=== PATIENT | male | born 1950 | race Caucasian/White ===

== ENCOUNTER 2025-03-20 13:09 | Observation (INO) | payer MEDICARE, SELFPAY ==
[2025-03-20] VITALS (39 sets, daily range): BP systolic 95–150; BP diastolic 33–69; PULSE 74–123; RESP 11–29; TEMP 36.4–37.2; O2SAT 90–98
--- NOTE | 2025-03-20 12:45 | RT.EKG_ITS ---
APPROVED REPORT Exam: Resting ECG Reason for Exam: tachycardia, sepsis alert Patient Location: E HR:121 bpm ECG Measurements Heart Rate 121 AXIS HI 174 P 28 QRSd 99 QRS -8 QT 297 T 27 QTc 417 Conclusion Sinus tachycardia...rate> 99 Multiform ventricular premature complexes...short R-R, variable morphology
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
--- NOTE | 2025-03-20 13:26 | DI.CT_ITS ---
Exam(s) CT ABDOMEN PELVIS WO EXAM: CT ABDOMEN PELVIS WO CLINICAL HISTORY: septic; infection search. TECHNIQUE: Imaging Protocol: Axial computed tomography images with coronal and sagittal reformatted images were created and reviewed. Oral: no COMPARISON: MR MRI ABDOMEN WO CONTRAST from 05/04/2017 FINDINGS: Lung Bases: Right lower lobe pneumonia. The visualized portions of the right middle lobe and left lower lobe are free of infiltrate. Liver: Mildly enlarged. [id number] hepatic steatosis. No suspicious mass. Gallbladder and biliary tract: Cholecystectomy. No biliary dilation. Pancreas: Normal density. No abnormal calcifications or inflammatory process. Spleen: Enlarged at 15 cm in length. Kidneys: Normal size, contour and axis. No radiodense stones. No obstructive uropathy. No suspicious masses seen. Adrenal glands: No masses seen. Lymph nodes: Within normal limits. Vasculature: Abdominal aorta non-dilated. Soft tissues: Small fat containing umbilical hernia. Small amount of fat in both inguinal canals. Bladder: No wall thickening. No mass or calculi. Bowel: No obstruction or bowel wall thickening. High-density material at the base of the cecum could be related to prior appendectomy. Sigmoid diverticulosis. No evidence of diverticulitis. The colon contains a small amount of fecal material. Peritoneal cavity: No ascites. No focal collection. No mesenteric inflammatory response. Reproductive organs: Markedly enlarged prostate, impressing on the base of the bladder. Bones: Advanced degenerative changes in the lumbar spine. IMPRESSION: Right lower lobe pneumonia. No acute abnormality in the abdomen or pelvis. RADIATION DOSE DELIVERED: Total DLP DATA REPOSITORY: All CT scans at this facility are submitted to the National Radiology Data Registry (NRDR) Dose Index Registry (DIR) with the [employer] (ACR). RADIATION OPTIMIZATION: All CT scans at this facility use at least one of these dose optimization techniques: automated exposure control; mA and/or kV adjustment per patient size (includes targeted exams where dose is matched to clinical indication); or iterative reconstruction.
[2025-03-20] MEDS: Ketorolac 15 MG/ML VIAL IVP (13:41)
[2025-03-20] MEDS: Normal Saline 1,000 ML 1000 ML IV (13:43)
[2025-03-20] MEDS: ACETAMINOPHEN 1,000 MG/100 ML BAG 400 MG IVPB (13:49)
[2025-03-20] MEDS: CEFEPIME 2 GM in Normal Saline 100 ML IVPB (14:00)
[2025-03-20 14:03] LABS: Abs Immature Grans 0.06 10^3/uL (0.0-0.06); BE (Venous) 2 mmol/L (-2-3); HCO3 (Venous) 27 mmol/L (23-28); HCT 36.0 % (40.0-50.0); HGB 11.2 g/dL (13.5-17.5); Immature Grans % 0.7 %; MCH 27.2 pg (27.0-33.0); MCHC 31.1 % (32.0-36.0); MCV 87 fL (80-95); MPV 9.8 fL (8.0-11.0); O2 Sat (Venous) 50 %; Platelet Count 185 10^3/uL (130-400); RBC 4.12 10^6/uL (4.36-5.78); RDW 14.8 % (11.8-14.1); RDW-SD 47.8 fL; TCO2 (Venous) 25 mmol/L (24-29); WBC 8.49 10^3/uL (4.4-10.8); pCO2 (Venous) 48 mmHg (41-51); pO2 (Venous) 29 mmHg
[2025-03-20] MEDS: Omnipaque 350 MG/ML 500 ML BTL-Imaging package IJ (14:20)
[2025-03-20] MEDS: Normal Saline - Diluent 50 ML VIAL IJ (14:20)
[2025-03-20 14:29] LABS: ALT 18 U/L (16-63); AST 18 U/L (15-37); Albumin 3.2 g/dL (3.4-5.0); Alkaline Phosphatase 72 U/L (46-116); Anion Gap 5.2 mmol/L (3-11); BUN 38 mg/dL (7-18); Bilirubin, Total 1.3 mg/dL (0.2-1.0); CO2 30.8 mmol/L (21.0-32.0); Calcium 9.1 mg/dL (8.5-10.1); Chloride 100 mmol/L (98-107); Estimated GFR 30.28 (mL/min/1.73m2); Glucose 214 mg/dL (74-106); Lipase 17 U/L (<78); Magnesium 1.7 mg/dL (1.8-2.4); Potassium 5.5 mmol/L (3.5-5.1); Sodium 136 mmol/L (136-145); TSH (W/Ref FT4) 0.73 uIU/mL (0.36-3.74); Total Protein 8.0 g/dL (6.4-8.2); Troponin I 14 ng/L (<or=76)
[2025-03-20 14:30] LABS: C-Reactive Protein > 25.00 mg/dL (<or=0.5)
--- NOTE | 2025-03-20 14:54 | DI.RAD_ITS ---
Exam(s) XR CHEST 2V PA LATERAL EXAM: XR CHEST 2V PA LATERAL CLINICAL HISTORY: cough TECHNIQUE: 2D digital imaging was performed. Two views. COMPARISON: No exams were available for comparison FINDINGS: Exam is limited due to under penetration, patient body habitus and poor pulmonary inflation. HEART: Normal size. Aorta: Not dilated. PULMONARY VASCULATURE: Normal. MEDIASTINUM: Unremarkable. LUNGS: There are patchy densities at the right lung base, consistent with pneumonia hip. This is much better visualized on the CT performed earlier. PLEURAL SPACE: No pleural effusion or pneumothorax. BONE:Unremarkable for age. SOFT TISSUES: Unremarkable. IMPRESSION: Right lower lobe pneumonia. DATA REPOSITORY: RADIATION DOSE DELIVERED:
[2025-03-20] MEDS: VANCOMYCIN/WATER (PEG) 2 GM/400 ML BAG IVPB (15:14)
[2025-03-20 15:52] LABS: Glucose Negative (Negative)
[2025-03-20 16:03] LABS: C & S Indicated? No; RBC >50 HPF (0-2)
--- NOTE | 2025-03-20 17:00 | W.PM.HP.N ---
Date of service: 03/20/25 Time of Service: 17:00 Assessment and Plan Assessment and plan (1) Right lower lobe pneumonia: Status: Acute Assessment and plan: Pt is on rocephin and zithromax. Blood cultures have been drawn. Does not meet SIRS criteria. HR at 81/RR at 20/temp 37/wbc 12 (2) Hypertension: Status: Chronic Assessment and plan: cw lisinopril and verapamil (3) Type 2 diabetes mellitus: Status: Chronic Assessment and plan: will hold metformin 2/2 shanelle and cr at 2.2 Check a1c, add riss (4) Acute kidney injury (nontraumatic): Status: Acute Assessment and plan: cw ivf LR at 125 (5) BPH (benign prostatic hyperplasia): Status: Chronic Assessment and plan: flomax (6) Hyperkalemia: Status: Acute Assessment and plan: lokelma, recheck labs in am History of Present Illness History of Present Illness Chief Complaint: weakness Narrative: This is a 75-year-old gentleman with a known history of diabetes hypertension BPH who presents to the ED with 3 days of worsening weakness and now a nonproductive cough. While he was in the ED a CT of his abdomen was done as well as a chest x-ray the chest x-ray did show right lower lobe pneumonia top half of his CT did show a right lower lobe pneumonia as well. In reviewing his labs he was noted to have acute kidney injury with his current BUN to creatinine numbers being 38/2.2. Patient was also noted to have significant hyperkalemia with a potassium of 5.5. EKG did not show any enlarging T waves. Patient CRP was elevated at 25 and his magnesium was low at 1.7. His white count was 8.5 with an H&H of 11 and 36. In my discussion with Mr. Lombardi he states that he did not get his flu shot this year but did get his COVID shots. Patient is up-to-date on his pneumonia shot. Fluvid is pending at this time. Patient is otherwise without complaint. He does verify that he is a full code. Review of Systems All systems reviewed & are unremarkable except as noted in HPI and below PFSH All Active Problems (Updated 03/20/25 @ 16:22 by KEATON Bonilla) Acute kidney injury (Acute) Right lower lobe pneumonia (Acute) Hyperkalemia (Acute) Asymptomatic microscopic hematuria (Acute) Acute kidney injury (nontraumatic) (Acute) Cholelithiasis (Acute) Elevated troponin I level (Acute) Acute gallstone pancreatitis (Acute) Type 2 diabetes mellitus (Chronic) BPH (benign prostatic hyperplasia) (Chronic) Hypertension (Chronic) Surgical History (Updated 06/06/18 @ 14:36 by [employer] [place]) Cholecystectomy (05/09/17) Social History Smoking/Tobacco Use Status: Never Smoking risk assessment performed?: Yes Alcohol Intake: never Drug use: Never Do you feel safe in your relationship?: Yes Meds Allergies and Home Medications Allergies Allergy/AdvReac Type Severity Reaction Status Date / Time No Known Allergies Allergy Unverified 03/20/25 13:18 Home Medications ?Medication ?Instructions ?Recorded ?Confirmed ?Type aspirin 81 mg chewable tablet 81 mg PO DAILY 01/18/16 03/20/25 History (Children's Aspirin) lisinopril 10 mg tablet 10 mg PO DAILY 01/18/16 03/20/25 History verapamil 120 mg 24 hr 240 mg PO DAILY 01/18/16 03/20/25 History capsule,extended release (Verelan) tamsulosin 0.4 mg capsule 0.4 mg PO DAILY@0830 01/20/16 03/20/25 History metformin 1,000 mg tablet 1,000 mg PO BID@0800,1700 05/08/17 03/20/25 History (Glucophage) omeprazole 20 mg capsule,delayed 20 mg PO DAILY@0730 05/08/17 03/20/25 History release Exam Narrative Exam Narrative: HEENT-NCAT MMM EOMI PERRLA NECK-NO JVD NO THYROIDMEGALY CV-RRR NO MRG PULM-CTAB NO AMU SPEAKS IN COMPLETE SENTENCES ABD-[id number] EXT-NO CCE BILAT NEURO-CN 2-12 INTACT NON-FOCAL PSYCH-AAOX3 NAD Results Labs 03/20/25 13:42 03/20/25 13:42 Labs: Laboratory Results - last 24 hr 03/20/25 03/20/25 13:42 15:44 WBC 8.49 RBC 4.12 L Hgb 11.2 L Hct 36.0 L MCV 87 MCH 27.2 MCHC 31.1 L RDW 14.8 H Plt Count 185 MPV 9.8 Immature Gran % 0.7 Neutrophils % 85.4 Lymphocytes % 4.5 Monocytes % 9.0 Eosinophils % 0.2 Basophils % 0.2 Nucleated RBC % 0.0 Absolute Neutrophils 7.25 H Absolute Lymphocytes 0.38 L Absolute Monocytes 0.76 Absolute Eosinophils 0.02 Absolute Basophils 0.02 VBG pH 7.36 VBG pCO2 48 VBG pO2 29 VBG HCO3 27 VBG Total CO2 25 VBG O2 Saturation 50 VBG Base Excess 2 VBG Lactate 1.9 Sodium 136 Potassium 5.5 H Chloride 100 Carbon Dioxide 30.8 Anion Gap 5.2 BUN 38 H Creatinine 2.2 H Est GFR (CKD-EPI 2020) 30.28 Glucose 214 H Calcium 9.1 Magnesium 1.7 L Total Bilirubin 1.3 H AST 18 ALT 18 Alkaline Phosphatase 72 Troponin I 14 C-Reactive Protein > 25.00 H Total Protein 8.0 Albumin 3.2 L Lipase 17 TSH 0.73 Urine Color Yellow Urine Clarity Clear Urine pH 6.0 Ur Specific [place] 1.020 Urine Protein 100 H Urine Ketones Negative Urine Blood Large H Urine Nitrite Negative Urine Bilirubin Negative Urine Urobilinogen 1.0 H Ur Leukocyte Esterase Negative Urine RBC >50 H Urine WBC 5-10 Ur Epithelial Cells Negative Urine Crystals Few Amorphous Urine Bacteria Moderate Urine Casts 0-2 Fine Granular Urine Mucus Negative Ur Culture Indicated? No Urine Glucose Negative Last Vital Signs Temp 37.2 C 03/20/25 13:11 Pulse 74 03/20/25 16:36 Resp 20 03/20/25 16:00 BP 108/39 L 03/20/25 16:36 Pulse Ox 93 03/20/25 16:36 Time Spent Time spent with Patient: 40-54 minutes Time was spent: preparing to see the patient(eg.review tests), obtaining and/or reviewing separately otained hiistory, ordering medications,tests, procedures, referring, communicating with other health customer care professional, indepentently interpreting results, counseling the patient and care coordination
--- NOTE | 2025-03-20 17:21 | W.PC.ACHO ---
Registration Status: REG ER Primary Language: Preferred Language: Tajik ED Information & Data Chief Complaint Dizzy/Sync 03/20/25 15:48 Chief Complaint Dizzy/Sync 03/20/25 13:25 Triage Note BIBA fall d/t dizziness was 03/20/25 13:11 only on floor few mins, denies head strike increased weakness x3-4 days. Blood sugar in trg 205 Cholecystectomy (05/09/17) Most Recent Vital Signs Temperature 37.2 C 03/20/25 13:11 Temperature Source Oral 03/20/25 13:11 Pulse 74 03/20/25 16:36 Pulse 79 03/20/25 16:35 Respiratory Rate 20 03/20/25 16:00 Respiratory Effort Normal 03/20/25 14:07 Blood Pressure 108/39 L 03/20/25 16:36 Blood Pressure Mean 60 03/20/25 16:36 Blood Pressure Position Sitting 03/20/25 13:11 Pulse Oximetry 93 03/20/25 16:36 Oxygen Delivery Method Nasal Cannula 03/20/25 14:07 Oxygen Flow Rate 2 03/20/25 14:07 Allergies No Known Allergies Allergy (Unverified 03/20/25 13:18) IV IV Catheter Type [Right Saline Lock Antecubital] IV Catheter Type [Left Saline Lock Antecubital] IV Catheter Gauge [Right 18 Antecubital] IV Catheter Gauge [Left 20 Antecubital] Diet Orders Category Date Time Status Heart Healthy Eating [DIET] Nutrition 03/20/25 Dinner Active Diagnostics 03/20/25 03/20/25 03/20/25 Range/Units 17:06 15:44 13:42 WBC 8.49 (4.4-10.8) 10^3/uL RBC 4.12 L (4.36-5.78) 10^6/uL Hgb 11.2 L (13.5-17.5) g/dL Hct 36.0 L (40.0-50.0) % MCV 87 (80-95) fL MCH 27.2 (27.0-33.0) pg MCHC 31.1 L (32.0-36.0) % RDW 14.8 H (11.8-14.1) % Plt Count 185 (130-400) 10^3/uL MPV 9.8 (8.0-11.0) fL Immature Gran % 0.7 % Neutrophils % 85.4 % Lymphocytes % 4.5 % Monocytes % 9.0 % Eosinophils % 0.2 % Basophils % 0.2 % Nucleated RBC % 0.0 (0.0-0.3) % Absolute Neutrophils 7.25 H (1.2-6.7) 10^3/uL Absolute Lymphocytes 0.38 L (1.2-3.4) 10^3/uL Absolute Monocytes 0.76 (0.1-0.8) 10^3/uL Absolute Eosinophils 0.02 (0.0-0.7) 10^3/uL Absolute Basophils 0.02 (0.0-0.2) 10^3/uL VBG pH 7.36 (7.31-7.41) VBG pCO2 48 (41-51) mmHg VBG pO2 29 mmHg VBG HCO3 27 (23-28) mmol/L VBG Total CO2 25 (24-29) mmol/L VBG O2 Saturation 50 % VBG Base Excess 2 (-2-3) mmol/L VBG Lactate 1.9 (<or=2.0) mmol/L Sodium 136 (136-145) mmol/L Potassium 5.5 H (3.5-5.1) mmol/L Chloride 100 (98-107) mmol/L Carbon Dioxide 30.8 (21.0-32.0) mmol/L Anion Gap 5.2 (3-11) mmol/L BUN 38 H (7-18) mg/dL Creatinine 2.2 H (0.70-1.30) mg/dL Est GFR (CKD-EPI 2020) 30.28 (mL/min/1.73m2) Glucose 214 H (74-106) mg/dL Calcium 9.1 (8.5-10.1) mg/dL Magnesium 1.7 L (1.8-2.4) mg/dL Total Bilirubin 1.3 H (0.2-1.0) mg/dL AST 18 (15-37) U/L ALT 18 (16-63) U/L Alkaline Phosphatase 72 (46-116) U/L Troponin I 14 (<or=76) ng/L C-Reactive Protein > 25.00 H (<or=0.5) mg/dL Total Protein 8.0 (6.4-8.2) g/dL Albumin 3.2 L (3.4-5.0) g/dL Lipase 17 (<78) U/L TSH 0.73 (0.36-3.74) uIU/mL Urine Color Yellow (Yellow) Urine Clarity Clear (Clear) Urine pH 6.0 (5-8) Ur Specific [place] 1.020 (1.005-1.025) Urine Protein 100 H (Neg-Trace) mg/dL Urine Ketones Negative (Negative) mg/dL Urine Blood Large H (Negative) Urine Nitrite Negative (Negative) Urine Bilirubin Negative (Negative) Urine Urobilinogen 1.0 H (Up to 0.2) mg/dL Ur Leukocyte Esterase Negative (Negative) Urine RBC >50 H (0-2) HPF Urine WBC 5-10 (0-5) HPF Ur Epithelial Cells Negative (Negative) HPF Urine Crystals Few Amorphous (Negative) HPF Urine Bacteria Moderate (Negative) HPF Urine Casts 0-2 Fine Granular (Negative) LPF Urine Mucus Negative (Negative) Ur Culture Indicated? No Urine Glucose Negative (Negative) mg/dL COVID-19 Source Pending SARS-CoV-2 (PCR) Pending Influenza Type A (PCR) Pending Influenza Type B (PCR) Pending RSV (PCR) Pending 03/20/25 13:56 Blood Culture - Pending Blood 03/20/25 13:42 Blood Culture - Pending Blood [id number] Documentation Fingerstick Glucose Start: 03/20/25 13:18 Freq: Status: Active Protocol: Activity Type Activity Date Activity User E-sign Co-sign Detail Recorded Client Recorded Date Recorded By Document 03/20/25 13:17 MELG DAEMON(3) [id number] 03/20/25 13:18 BKG DAEMON(4) Intake and Output - 24 Hour Total 03/20/25 12:54 thru 03/20/25 14:45 Intake Total 1210 Balance 1210 Weight 117.7 kg Intake: IV 1210 Falls Risk Assessment History of Falls Admit Due to Fall 03/20/25 13:53 Contributing Factors Unstable 03/20/25 13:53 Gait Evaluation W/no contributing factors 03/20/25 13:53 Cognition No cognitive impairment 03/20/25 13:53 Fall Total Score 38 03/20/25 13:53 Level of Risk Moderate Risk 03/20/25 13:53 Problems Right lower lobe pneumonia (Acute) Hyperkalemia (Acute) Acute kidney injury (nontraumatic) (Acute) Type 2 diabetes mellitus (Chronic) BPH (benign prostatic hyperplasia) (Chronic) Hypertension (Chronic) v v v v v v v v v Sending and/or Receiving Nurses: Please use comment section below to note any information pertinent to the patient hand-off not included above. Information / Comments: Report received, all questions answered. Report received from: YAYO Barnes @[id number] report recieved.
[2025-03-20 17:49] LABS: COVID-19 PCR Negative (Negative); RSV PCR Negative (Negative)
[2025-03-20] MEDS: AZITHROMYCIN 500 MG in Normal Saline 250 ML 250 MG IVPB (18:26)
[2025-03-20] MEDS: Lactated Ringers 1,000 ML 100 ML IV (18:26)
[2025-03-20] MEDS: Normal Saline Flush 10 ML SYR (18:27)
[2025-03-20] MEDS: Enoxaparin 40 MG/0.4 ML SYR SC (18:27)
[2025-03-20] MEDS: cefTRIAXone 1 GM/50 ML BAG IVPB (21:17)
[2025-03-20] MEDS: Sodium Zirconium Cyclosilicate 10 GM PKT PO (22:09)
[2025-03-21] VITALS (19 sets, daily range): BP systolic 99–139; BP diastolic 40–72; PULSE 68–96; RESP 16–18; TEMP 36–39.8; O2SAT 86–96
[2025-03-21] MEDS: Acetaminophen 325 MG TAB PO ×2 (04:37→16:15)
[2025-03-21] MEDS: Sodium Zirconium Cyclosilicate 10 GM PKT PO (05:54)
[2025-03-21] MEDS: Albuterol/Ipratropium 3 ML UPD VIAL UPD ×2 (05:55→13:12)
[2025-03-21] MEDS: Lactated Ringers 1,000 ML 100 ML IV ×2 (06:15→16:58)
[2025-03-21 06:53] LABS: Abs Immature Grans 0.06 10^3/uL (0.0-0.06); HCT 32.0 % (40.0-50.0); HGB 9.8 g/dL (13.5-17.5); Immature Grans % 0.8 %; MCH 26.8 pg (27.0-33.0); MCHC 30.6 % (32.0-36.0); MCV 87 fL (80-95); MPV 10.0 fL (8.0-11.0); Platelet Count 173 10^3/uL (130-400); RBC 3.66 10^6/uL (4.36-5.78); RDW 14.8 % (11.8-14.1); RDW-SD 48.1 fL; WBC 7.61 10^3/uL (4.4-10.8)
[2025-03-21 07:21] LABS: ALT 17 U/L (16-63); AST 23 U/L (15-37); Albumin 2.6 g/dL (3.4-5.0); Alkaline Phosphatase 65 U/L (46-116); Anion Gap 9.9 mmol/L (3-11); BUN 41 mg/dL (7-18); Bilirubin, Total 1.0 mg/dL (0.2-1.0); CO2 26.1 mmol/L (21.0-32.0); Calcium 8.5 mg/dL (8.5-10.1); Chloride 101 mmol/L (98-107); Estimated GFR 32.02 (mL/min/1.73m2); Glucose 160 mg/dL (74-106); Potassium 4.5 mmol/L (3.5-5.1); Sodium 137 mmol/L (136-145); Total Protein 7.0 g/dL (6.4-8.2)
[2025-03-21 07:50] LABS: Hemoglobin A1C 7.1 % (<5.7)
[2025-03-21] MEDS: Insulin Aspart 300 UNITS/3 ML PEN SC ×3 (08:11→16:58)
[2025-03-21] MEDS: Lisinopril 10 MG TAB PO (08:12)
[2025-03-21] MEDS: Omeprazole 20 MG CAPCR PO (08:12)
[2025-03-21] MEDS: Magnesium Gluconate 500 MG TAB PO (08:12)
[2025-03-21] MEDS: Tamsulosin 0.4 MG CAPCR PO (08:12)
[2025-03-21] MEDS: Aspirin 81 MG CHEW PO (08:12)
--- NOTE | 2025-03-21 10:42 | PDOC.CMIN ---
Date of service: 03/21/25 Time of Service: 10:42 Care Management Initial Assmt Initial Assessment Reason for Hospitalization: RLL Pneumonia Functional Status/Living Situation Patient Presentation: Cj was sitting up in a chair visiting with his good friends and neighbors Ulises and Rosalie when CM met with him. He seemed a bit sleepy but was pleasant in interaction and agreeable to conversation. Cj was admitted on 03/20/25 with pneumonia. He briefly required oxygen at 2L/min when his oxygen saturation dropped into the 80s. He is now saturating in the mid nineties on room air. Cj lives in a single family home in [place]. He has 2 children who live locally and he describes the family as close and supportive. He also identified Ulises and Rosalie as major community supports. Cj uses a cane for ambulatory assistance as needed. He does not currently receive any community services and is independent at baseline. Town of Residence: [place] Resides with: Alone Significant Other/Family: Local Employment Status: Retired Instrumental Activities of Daily Living (ADLs): Independent Medications Medication Management: No Issues/Barriers identified Physical Functioning/Mobility Assistive Device: cane Advance Directives Advance Directives: Do you have an Advance Directive: N 01/18/16, 19:46 AD On File at [facility]: N 01/18/16, 19:46 Date Asked 03/20/25 03/20/25, 13:32 AD Date Reviewed COLST On File at [facility] COLST Date Scanned Code Status Resuscitation Status Full Code Portal Pt does not currently have a portal and education provided: Yes Insurance Coverage/Financial Issues Insurance: Medicare [place] Care Team Visit Care Team Role Provider Type Leilani Bliss MD Primary Care Provider [facility] STAFF PHYSICIAN KEATON Bonilla Emergency Provider [facility] Luis Jacques MD Admit Provider [facility] STAFF PHYSICIAN Attending Provider Discharge Potential Discharge Needs: PCP F/U Appt Anticipated Barriers to Discharge: None Identified Patient/Family Education Needs: Review discharge instructions, discuss Ask Me Three Transportation: Private vehicle Plan: Anticipate Cj will be discharged home with no new services when medically cleared. He will follow up with his PCP and plan of care and transport with family. CM will follow and continue to asses for dsicharge needs. Social Determinants of Health Screening Social Determinants of health last assessed in clinic: 03/21/25 Will the Patient Participate in the Screening?: Yes Do you worry about having a steady place to live?: no Problems where you live: water leaks In the past 12 months, have you had to go without electric, gas, oil or water in your home?: no 1. Within the past 12 months, we worried whether our food would run out before we got money to buy more.: Never true 2. Within the past 12 months, the food we bought just didn't last and we didn't have money to get more.: Never true Has lack of transportation kept you from medical appointments or from doing things needed for daily living?: no Has anyone in your life made you feel unsafe or unsupported?: no How hard is it for you to pay for the very basics like food, housing, medical care, and heating? Would you say it is:: Not hard at all Do you want help finding or keeping work or a job?: I do not need or want help If for any reason you need help with day-to-day activities such as bathing, preparing meals, shopping, managing finances, etc., do you get the help you need?: I don?t need any help How often do you feel lonely or isolated from those around you?: Never Do you speak a language other than Yoruba at home?: No Does the patient want assistance with any of the above?: No Health Related Social Needs Health related social needs: inadequate housing (Z59.1) Health related social needs details: none PFSH All Active Problems (Updated 03/20/25 @ 16:22 by KEATON Bonilla) Acute kidney injury (Acute) Right lower lobe pneumonia (Acute) Hyperkalemia (Acute) Asymptomatic microscopic hematuria (Acute) Acute kidney injury (nontraumatic) (Acute) Cholelithiasis (Acute) Elevated troponin I level (Acute) Acute gallstone pancreatitis (Acute) Type 2 diabetes mellitus (Chronic) BPH (benign prostatic hyperplasia) (Chronic) Hypertension (Chronic) Surgical History (Updated 06/06/18 @ 14:36 by [employer] [place]) Cholecystectomy (05/09/17) Social History Smoking/Tobacco Use Status: Never Smoking risk assessment performed?: Yes Alcohol Intake: never Drug use: Never Housing: house Do you feel safe in your relationship?: Yes
[2025-03-21 14:20] LABS: BE (Venous) -1 mmol/L (-2-3); HCO3 (Venous) 24 mmol/L (23-28); O2 Sat (Venous) 75 %; TCO2 (Venous) 22 mmol/L (24-29); pCO2 (Venous) 37 mmHg (41-51); pO2 (Venous) 41 mmHg
--- NOTE | 2025-03-21 14:37 | PHA.REVIEW2 ---
Pharmacy Admission Review Admission Clinical Review Admission Pharmacy Review: Right lower lobe pneumonia (Acute) Hyperkalemia (Acute) Acute kidney injury (nontraumatic) (Acute) No Known Allergies Allergy (Unverified 03/20/25 13:18) Resuscitation Status Full Code Height 5 ft 10 in Weight 115 kg Pharmacy Admission Review Renal Dosing Renal Dosing: BUN 41 mg/dL (7-18) H 03/21/25 06:22 Creatinine 2.1 mg/dL (0.70-1.30) H 03/21/25 06:22 Medications needing adjustments: Reviewed (CrCl 38 mL/min, BUN increased from 38, SCr decreased from 2.2) List of meds needing interventions: Current medications are okay Anticoagulation Anticoagulation: Hgb 9.8 g/dL (13.5-17.5) L 03/21/25 06:22 Hct 32.0 % (40.0-50.0) L 03/21/25 06:22 Plt Count 173 10^3/uL (130-400) 03/21/25 06:22 Creatinine 2.1 mg/dL (0.70-1.30) H 03/21/25 06:22 DVT Prophylaxis: Reviewed (Hgb decreased from 11.2) Medications: Enoxaparin (40mg daily) Relevant Labs Relevant Labs: Sodium 137 mmol/L (136-145) 03/21/25 06:22 Potassium 4.5 mmol/L (3.5-5.1) D 03/21/25 06:22 Chloride 101 mmol/L (98-107) 03/21/25 06:22 Magnesium 1.7 mg/dL (1.8-2.4) L 03/20/25 13:42 C-Reactive Protein > 25.00 mg/dL (<or=0.5) H 03/20/25 13:42 Electrolytes, C-Reactive P, ESR: Reviewed DM Control DM Control: Glucose 160 mg/dL (74-106) H 03/21/25 06:22 Hemoglobin A1c 7.1 % (<5.7) H 03/21/25 06:22 Finger Stick Blood Glucose 204 1213 Finger Stick Blood Glucose 204 1150 Finger Stick Blood Glucose 204 1150 Finger Stick Blood Glucose 161 0811 Finger Stick Blood Glucose 161 0752 Finger Stick Blood Glucose 161 0752 DM Control: Reviewed Insulin Dosing, Diabetic Medication: Has orders for SS insulin. Takes metformin at home - on hold for now due to MARU per H+P. Cardiac Review Cardiac Review: Troponin I 14 ng/L (<or=76) 03/20/25 13:42 Blood Pressure 99/40 1336 Blood Pressure 139/67 1059 Blood Pressure 123/56 0739 Blood Pressure 127/72 0424 BP, HR, EF%: Reviewed (HR 92) List meds needing interventions: Has orders for lisinopril 10mg daily and verapamil CR 240mg daily QTc Review QTc: Reviewed (417 from 03/20/25) IV to PO Switch IV Medications: Reviewed (azithromycin and ceftriaxone) Home Meds Home Med List reviewed: Reviewed Relevent Home Meds Not ordered & why?: metformin (on hold due to MARU per H+P) Current Meds Current Medication Order Review: Intervened Comments: Added IV admission order set Pharmacy Antibiotic Review Relevant Labs: WBC 7.61 10^3/uL (4.4-10.8) 03/21/25 06:22 Temperature 36.4 C Temperature 36.6 C Temperature 36.9 C Temperature 36 C Temperature 37.5 C Temperature 37.5 C Pharmacy Antibiotic Activity: C/S review and Reviewed, no change Comments: Patient is on azithromycin and ceftriaxone, day 1, for pneumonia. Blood cultures pending.
--- NOTE | 2025-03-21 15:09 | W.PM.PROGNOT ---
Date of Service Date of service: 03/21/25 Time of Service: 15:10 Assessment and Plan Assessment and plan (1) Right lower lobe pneumonia: Status: Acute Assessment and plan: Pt is on rocephin and zithromax. Blood cultures have been drawn. Does not meet SIRS criteria. HR at 81/RR at 20/temp 37/wbc 12 03/21/25 VBG was fairly bland this afternoon. Pt does have some somnolence but could be 2/2 ARY. Blood cultures negative at this point. Pt on rocephin and zithromax (2) Hypertension: Status: Chronic Assessment and plan: cw lisinopril and verapamil 03/21/25 will need optimization in the outpatient setting (3) Type 2 diabetes mellitus: Status: Chronic Assessment and plan: will hold metformin 2/2 shanelle and cr at 2.2 Check a1c, add riss 03/21/25 a1c at 7.1 and will need optimization in the outpatient setting. Would consider SGLT2P but will defer to pcp (4) Acute kidney injury (nontraumatic): Status: Acute Assessment and plan: cw ivf LR at 125 03/21/25 Renal fx without significant improvement over last 24 hours. Would certainly consider stopping metformin until Cr gets below 1.5/6 (5) BPH (benign prostatic hyperplasia): Status: Chronic Assessment and plan: flomax 03/21/25 added bladder scan and will add proscar (6) Hyperkalemia: Status: Acute Assessment and plan: lokelma, recheck labs in am 03/21/25 resolved, will stop lokelma Subjective Subjective Interval history since last seen: Pt with some increasing somnolence this am. NS report urinary retention. Pt is on flomax Exam Narrative Exam Narrative: HEENT-NCAT MMM EOMI PERRLA NECK-NO JVD NO THYROIDMEGALY CV-RRR NO MRG PULM-CTAB NO AMU SPEAKS IN COMPLETE SENTENCES ABD-[id number] EXT-NO CCE BILAT NEURO-CN 2-12 INTACT NON-FOCAL PSYCH-More somnolent today Objective Last Vital Signs Temp 36.4 C L 03/21/25 13:36 Pulse 92 H 03/21/25 13:36 Resp 16 03/21/25 13:21 BP 99/40 L 03/21/25 13:36 Pulse Ox 95 03/21/25 13:36 Laboratory Results - last 24 hr 03/20/25 03/20/25 03/21/25 15:44 17:06 06:22 WBC 7.61 RBC 3.66 L Hgb 9.8 L Hct 32.0 L MCV 87 MCH 26.8 L MCHC 30.6 L RDW 14.8 H Plt Count 173 MPV 10.0 Immature Gran % 0.8 Neutrophils % 78.2 Lymphocytes % 8.0 Monocytes % 12.4 Eosinophils % 0.3 Basophils % 0.3 Nucleated RBC % 0.0 Absolute Neutrophils 5.96 Absolute Lymphocytes 0.61 L Absolute Monocytes 0.94 H Absolute Eosinophils 0.02 Absolute Basophils 0.02 VBG pH VBG pCO2 VBG pO2 VBG HCO3 VBG Total CO2 VBG O2 Saturation VBG Base Excess Sodium 137 Potassium 4.5 D Chloride 101 Carbon Dioxide 26.1 Anion Gap 9.9 BUN 41 H Creatinine 2.1 H Est GFR (CKD-EPI 2020) 32.02 Glucose 160 H Hemoglobin A1c 7.1 H Calcium 8.5 Total Bilirubin 1.0 AST 23 ALT 17 Alkaline Phosphatase 65 Total Protein 7.0 Albumin 2.6 L Urine Color Yellow Urine Clarity Clear Urine pH 6.0 Ur Specific [place] 1.020 Urine Protein 100 H Urine Ketones Negative Urine Blood Large H Urine Nitrite Negative Urine Bilirubin Negative Urine Urobilinogen 1.0 H Ur Leukocyte Esterase Negative Urine RBC >50 H Urine WBC 5-10 Ur Epithelial Cells Negative Urine Crystals Few Amorphous Urine Bacteria Moderate Urine Casts 0-2 Fine Granular Urine Mucus Negative Ur Culture Indicated? No Urine Glucose Negative COVID-19 Source Nasopharynx SARS-CoV-2 (PCR) Negative Influenza Type A (PCR) Negative Influenza Type B (PCR) Negative RSV (PCR) Negative 03/21/25 14:15 WBC RBC Hgb Hct MCV MCH MCHC RDW Plt Count MPV Immature Gran % Neutrophils % Lymphocytes % Monocytes % Eosinophils % Basophils % Nucleated RBC % Absolute Neutrophils Absolute Lymphocytes Absolute Monocytes Absolute Eosinophils Absolute Basophils VBG pH 7.41 VBG pCO2 37 L VBG pO2 41 VBG HCO3 24 VBG Total CO2 22 L VBG O2 Saturation 75 VBG Base Excess -1 Sodium Potassium Chloride Carbon Dioxide Anion Gap BUN Creatinine Est GFR (CKD-EPI 2020) Glucose Hemoglobin A1c Calcium Total Bilirubin AST ALT Alkaline Phosphatase Total Protein Albumin Urine Color Urine Clarity Urine pH Ur Specific [place] Urine Protein Urine Ketones Urine Blood Urine Nitrite Urine Bilirubin Urine Urobilinogen Ur Leukocyte Esterase Urine RBC Urine WBC Ur Epithelial Cells Urine Crystals Urine Bacteria Urine Casts Urine Mucus Ur Culture Indicated? Urine Glucose COVID-19 Source SARS-CoV-2 (PCR) Influenza Type A (PCR) Influenza Type B (PCR) RSV (PCR) Time Spent with Patient Time Spent with Patient: 25-34 minutes Time was spent: preparing to see the patient(eg.review tests), obtaining and/or reviewing separately [facility], ordering medications,tests, procedures, referring, communicating with other health direct care staffer, indepentently interpreting results, counseling the patient and care coordination
--- NOTE | 2025-03-21 16:49 | CHAPLAIN ---
Cj was up in the chair when I visited. He's here with pneumonia. I explained my role and offered support. He wasn't interested in further conversation.
[2025-03-21] MEDS: Enoxaparin 40 MG/0.4 ML SYR SC (18:50)
[2025-03-21] MEDS: AZITHROMYCIN 500 MG in Normal Saline 250 ML 250 MG IVPB (18:50)
[2025-03-21] MEDS: Normal Saline Flush 10 ML SYR IVP (18:50)
[2025-03-21] MEDS: cefTRIAXone 1 GM/50 ML BAG IVPB (21:00)
[2025-03-22 04:27] VITALS: BP 116/50; PULSE 81; RESP 16; TEMP 37.6; O2SAT 91
[2025-03-22] MEDS: Lactated Ringers 1,000 ML 100 ML IV (04:51)
[2025-03-22] MEDS: Omeprazole 20 MG CAPCR PO (06:26)
[2025-03-22 06:39] VITALS: O2SAT 95
[2025-03-22 06:56] LABS: Abs Immature Grans 0.04 10^3/uL (0.0-0.06); HCT 31.4 % (40.0-50.0); HGB 9.8 g/dL (13.5-17.5); Immature Grans % 0.8 %; MCH 27.3 pg (27.0-33.0); MCHC 31.2 % (32.0-36.0); MCV 88 fL (80-95); MPV 10.2 fL (8.0-11.0); Platelet Count 175 10^3/uL (130-400); RBC 3.59 10^6/uL (4.36-5.78); RDW 14.9 % (11.8-14.1); RDW-SD 47.9 fL; WBC 5.29 10^3/uL (4.4-10.8)
[2025-03-22 07:23] LABS: ALT 21 U/L (16-63); AST 25 U/L (15-37); Albumin 2.4 g/dL (3.4-5.0); Alkaline Phosphatase 63 U/L (46-116); Anion Gap 6.4 mmol/L (3-11); BUN 42 mg/dL (7-18); Bilirubin, Total 0.5 mg/dL (0.2-1.0); CO2 28.6 mmol/L (21.0-32.0); Calcium 8.5 mg/dL (8.5-10.1); Chloride 104 mmol/L (98-107); Estimated GFR 33.95 (mL/min/1.73m2); Glucose 119 mg/dL (74-106); Potassium 4.1 mmol/L (3.5-5.1); Sodium 139 mmol/L (136-145); Total Protein 6.9 g/dL (6.4-8.2)
[2025-03-22 07:24] VITALS: BP 124/53; PULSE 80; RESP 16; TEMP 36.9; O2SAT 91
[2025-03-22] MEDS: Lisinopril 10 MG TAB PO (08:12)
[2025-03-22] MEDS: Finasteride 5 MG TAB PO (08:12)
[2025-03-22] MEDS: Magnesium Gluconate 500 MG TAB PO (08:12)
[2025-03-22] MEDS: Aspirin 81 MG CHEW PO (08:13)
[2025-03-22] MEDS: Tamsulosin 0.4 MG CAPCR PO (08:13)
--- NOTE | 2025-03-22 10:28 | W.PM.DS.N ---
Date of service: 03/22/25 Time of Service: 10:28 DS: Diagnosis Discharge Diagnosis (1) Right lower lobe pneumonia: Status: Acute (2) Hypertension: Status: Chronic (3) Type 2 diabetes mellitus: Status: Chronic (4) Acute kidney injury (nontraumatic): Status: Acute (5) BPH (benign prostatic hyperplasia): Status: Chronic (6) Hyperkalemia: Status: Acute Discharge Plan Disposition Patient Disposition: Home Condition: Improving Discharge Details Reason For Visit: Pneumonia Admit Date/Time: 03/20/25 16:55 Admit Provider: Luis Jacques Attending Provider: Luis Jacques Primary Care Provider: Leilani Bliss Hospital Course Hospital Course: This is a 75-year-old gentleman who presented to the ED on the with signs and symptoms consistent with pneumonia. Patient was admitted to the hospital service for further evaluation and treatment. He was noted to have acute kidney injury on admission with an elevated creatinine and was on metformin. On the second he has to be discharged home to which he agreed. It is imperative that the patient complete his course of antibiotics which we Zithromax and hold his metformin until his renal function improves. In regards to diagnostic data he was noted to have some anemia and will need outpatient follow-up for this. On admission he did have hyperkalemia which resolved with Lokelma was originally 5.5 currently 4.1. BUN and creatinine are essentially stable but approximately 40/2.2 with GFR of 33. This qualifies him for chronic kidney disease stage III. I did check an A1c in the at a value of 7.1 so he will need optimization of the outpatient setting. Patient was also noted to have mild magnesium deficiency so I will replace this as well. Patient was also noted to have hematuria and this will need to be rechecked in 4 to 6 weeks to ensure resolution. Fluvid was negative. Blood cultures are negative at 24 hours. Chest x-ray done on admission showed a right lower lobe pneumonia. CT scan of the abdomen pelvis redemonstrated right lower lobe pneumonia but was otherwise within normal limits. Patient be discharged in good health. While the patient was in the hospital he has noted to have some urinary tensions are increased or rather started finasteride. Recommend follow-up in the outpatient setting with urology at the discretion of PCP. Patient will also need optimization of his diabetic regimen his metformin will be held due to his renal function. Recommendations for Follow Up Recommended tests to be ordered by follow up provider: ua in 4-6 weeks cmp in 2 weeks magensium in 2 weeks Follow up on blood culture results Home Meds and New Rx's Prescriptions: New finasteride 5 mg Tablet 5 mg PO DAILY 30 Days Qty: 30 0RF magnesium gluconate 27 mg magnesium (500 mg) Tablet 500 mg PO DAILY Qty: 20 0RF azithromycin 250 mg tablet 250 mg PO DAILY 4 Days Qty: 4 0RF Rx Instructions: start on day 2 of therapy Continued lisinopril 10 MG tablet 10 mg PO DAILY aspirin [Children's Aspirin] 81 MG tablet,chewable 81 mg PO DAILY verapamil [Verelan] 120 MG capsule,ext rel. pellets 24 hr 240 mg PO DAILY tamsulosin 0.4 MG capsule 0.4 mg PO DAILY@0830 omeprazole 20 MG capsule,delayed release(DR/EC) 20 mg PO DAILY@0730 Discontinued metformin [Glucophage] 1,000 MG tablet 1,000 mg PO BID@0800,1700 Discharge Instructions Stand Alone Forms: Nursing Discharge Form Referrals: Leilani Bliss MD [Primary Care Provider, Medicine] Referral Note: follow up in 5-7 days Activity:: Activity as Tolerated Equipment/Supplies:: No Equipment Needed Diet:: As Tolerated Discharge Orders Discharge Orders: Discharge Order (Routine); Ordered 03/22/25 Ordered By: Luis Jacques DS: Summary Time Spent with Patient providing and/or coordinating discharge services: Less than 30 minutes Status at Discharge Functional status at discharge: uses cane/walker Overall status at discharge: patient is back to baseline Mental Status: mental status grossly normal Speech and Movement: speech and movement normal Mood: congruent mood Affect: normal affect Quality:SDOH Health Related Social Needs: Health related social needs inadequate housing Health related social needs details none Health related social needs details: none Exam Narrative Exam Narrative: HEENT-NCAT MMM EOMI PERRLA NECK-NO JVD NO THYROIDMEGALY CV-RRR NO MRG PULM-CTAB NO AMU SPEAKS IN COMPLETE SENTENCES ABD-SNTNDBSA EXT-NO CCE BILAT NEURO-CN 2-12 INTACT NON-FOCAL PSYCH-More somnolent today Psych Mental Status: mental status grossly normal Speech and Movement: speech and movement normal Mood: congruent mood Affect: normal affect DS: Data Vitals/I&O Vitals and I&O: Vital Signs Temperature 36.9 C 03/22/25 07:24 Temperature Source Temporal Artery Scan 03/22/25 07:24 Pulse 80 03/22/25 07:24 Pulse Rhythm Regular 03/20/25 17:38 Pulse 79 03/20/25 16:35 Respiratory Rate 16 03/22/25 07:24 Respiratory Effort Normal, Non-Labored 03/20/25 17:38 Respiratory Depth Normal 03/20/25 17:38 Respiratory Pattern Normal 03/20/25 17:38 Blood Pressure 124/53 L 03/22/25 07:24 Blood Pressure Mean 76 03/22/25 07:24 Blood Pressure Position Sitting 03/20/25 13:11 Pulse Oximetry 91 L 03/22/25 07:24 Oxygen Delivery Method Room Air 03/22/25 07:24 Oxygen Flow Rate 0 03/22/25 07:24 Pain Level 0 03/22/25 04:27 Comment Sleeping in chair refused. [employer]ST will get at 11 pm. 03/21/25 20:44 Intake & Output 03/21/25 03/21/25 03/22/25 11:59 23:59 11:59 Intake Total 1300 / 2500 1200 / 2500 1400 / 1400 Output Total 400 / 1025 625 / 1025 0 / 0 Balance 900 / 1475 575 / 1475 1400 / 1400 Weight 115 kg 116.602 kg Intake: IV 1300 / 2300 1000 / 2300 1300 / 1300 Oral 200 / 200 100 / 100 Output: Urine 400 / 1025 625 / 1025 0 / 0 Other: Urine Color Yellow Light Catia Yellow Urine Appearance Clear Clear Clear Urine Odor Normal Normal Normal Comment Went in toilet. Not sure the amount of urine. Stool Size Small Small Stool Characteristics Formed Formed Data Completed and Pending Labs on day of discharge: Labs from last 24 hours 03/22/25 03/21/25 06:30 14:15 WBC 5.29 RBC 3.59 L Hgb 9.8 L Hct 31.4 L MCV 88 MCH 27.3 MCHC 31.2 L RDW 14.9 H Plt Count 175 MPV 10.2 Immature Gran % 0.8 Neutrophils % 73.7 Lymphocytes % 10.2 Monocytes % 13.8 Eosinophils % 1.1 Basophils % 0.4 Nucleated RBC % 0.0 Absolute Neutrophils 3.90 Absolute Lymphocytes 0.54 L Absolute Monocytes 0.73 Absolute Eosinophils 0.06 Absolute Basophils 0.02 VBG pH 7.41 VBG pCO2 37 L VBG pO2 41 VBG HCO3 24 VBG Total CO2 22 L VBG O2 Saturation 75 VBG Base Excess -1 Sodium 139 Potassium 4.1 Chloride 104 Carbon Dioxide 28.6 Anion Gap 6.4 BUN 42 H Creatinine 2.0 H Est GFR (CKD-EPI 2020) 33.95 Glucose 119 H Calcium 8.5 Total Bilirubin 0.5 AST 25 ALT 21 Alkaline Phosphatase 63 Total Protein 6.9 Albumin 2.4 L Preliminary micro results at discharge 03/20/25 13:56 Blood Blood Culture - Preliminary NO GROWTH 24 HOURS 03/20/25 13:42 Blood Blood Culture - Preliminary NO GROWTH 24 HOURS PFSH All Active Problems (Updated 03/20/25 @ 16:22 by KEATON Bonilla) Acute kidney injury (Acute) Right lower lobe pneumonia (Acute) Hyperkalemia (Acute) Asymptomatic microscopic hematuria (Acute) Acute kidney injury (nontraumatic) (Acute) Cholelithiasis (Acute) Elevated troponin I level (Acute) Acute gallstone pancreatitis (Acute) Type 2 diabetes mellitus (Chronic) BPH (benign prostatic hyperplasia) (Chronic) Hypertension (Chronic) Surgical History (Updated 06/06/18 @ 14:36 by [employer] [place]) Cholecystectomy (05/09/17) Social History Smoking/Tobacco Use Status: Never Smoking risk assessment performed?: Yes Alcohol Intake: never Drug use: Never Housing: house Do you feel safe in your relationship?: Yes Time Spent with Patient Time Spent with Patient: <45 minutes Time was spent: preparing to see the patient(eg.review tests), obtaining and/or reviewing separately otained hiistory, ordering medications,tests, procedures, referring, communicating with other health rn progressive care, indepentently interpreting results, counseling the patient and care coordination
[2025-03-22 10:50] VITALS: BP 96/49; PULSE 79; TEMP 36.3; O2SAT 87
--- NOTE | 2025-03-22 15:08 | PDOC.CMDIS ---
Date of service: 03/22/25 Time of Service: 15:08 LACE Index Scoring Tool Questions: Length of Stay (in days): 2 Was the patient admitted via the E.D.?: Yes Comorbidities: Diabetes w/o Complication and Liver or Renal Disease E.D. Visits: 1 Answers: Total Score: 11 Risk of Readmission: High Risk Care Management Discharge Plan Reason for Hospitalization: Pneumonia Discharge Plan: Cj will be discharged home with no new services. He will follow up with his PCP and plan of care and transport with his son. Patient/Family Education Needs: Review discharge instructions, limitations, follow up plan and discuss Ask Me Three SDOH Health Related Social Needs: Health related social needs inadequate housing Health related social needs details none Health related social needs details: none
== END 2025-03-22 12:02 | disposition home or self-care (01) ==
LOC: ER 17:04 → MS 17:34
PROVIDERS: Emergency Medicine; Admitting Provider Hospitalist; Emergency Provider Physician Assistant; PCP Family Medicine; Responsible Provider Hospitalist; Visit Provider Hospitalist
DX: J18.9 Pneumonia, unspecified organism (principal); N17.9 Acute kidney failure, unspecified; E87.5 Hyperkalemia; N40.0 Benign prostatic hyperplasia without lower urinary tract symptoms; R74.8 Abnormal levels of other serum enzymes; R31.21 Asymptomatic microscopic hematuria; E83.42 Hypomagnesemia; D64.9 Anemia, unspecified; Z79.84 Long term (current) use of oral hypoglycemic drugs; N18.30 Chronic kidney disease, stage 3 unspecified; E11.22 Type 2 diabetes mellitus with diabetic chronic kidney disease; I12.9 Hypertensive chronic kidney disease with stage 1 through stage 4 chronic kidney disease, or unspecified chronic kidney disease
CPT/HCPCS: 00123; 36415; 36416; 80053; 82805; 82962; 83690; 87040; 87637; 93005; 94761; 96365; 96366; 96367; 96372; 96375; 99285; J1650; 71046; 74176; 81003; 81015; 83036; 83605; 83735; 84443; 84484; 85025; 86140; 93010; 94640; 99222; 99232; 99238; G0378; J0131; J0456; J0692; J0696; J1815; J1885; J3373; J7620